=== PATIENT | male | born 1970 | race Caucasian/White ===

== ENCOUNTER 2019-08-25 18:02 | Emergency (ER) | payer OTHER ==
[~2019-08-25] VITALS: Ht 180.3 cm; Wt 113.4 kg
[~2019-08-25 18:02] MED LIST: CARAFATE 1 GM TA1 GM PO; CETIRIZINE HCL5 MG PO; COZAAR 50 MG TA50 M1 PO; OMEPRAZOLE20 M1 PO
[2019-08-25] MEDS ORDERED: CLARITIN10 M3 PO (18:17)
[2019-08-25] MEDS ORDERED: VITAMIN D-40010 MCG PO (18:18)
[2019-08-25] MEDS ORDERED: NEURONTIN 300M300 M2 PO (18:18)
[2019-08-25] MEDS ORDERED: FLOMAX0.4 MG PO (18:18)
[2019-08-25 18:21] LABS: ABSOLUTE BASOPHILS 0.1 thou/uL (0.0-0.2); ABSOLUTE EOSINOPHILS 0.2 thou/uL (0.0-0.7); ABSOLUTE LYMPHOCYTES 2.5 thou/uL (0.8-5.3); ABSOLUTE MONOCYTES 0.8 thou/uL (0.0-1.2); ABSOLUTE NEUTROPHILS 5.5 thou/uL (1.6-8.1); BASOPHILS 0.6 %; EOSINOPHILS 1.9 %; HEMATOCRIT 41.6 % (42.0-52.0); HEMOGLOBIN 14.3 gm/dL (14.0-18.0); LYMPHOCYTES 27.6 %; MCHC 34.3 g/dL (28.0-37.0); MCV 90.3 fL (80.0-100.0); MPV 8.5 fl. (7.2-11.1); NUCLEATED RBCS 0 /100WBC; PLATELET COUNT* 262 thou/uL (150-400); POLYS 60.9 %; RDW-CV 12.9 % (10.5-14.5); URINE BILIRUBIN NEGATIVE (Negative); URINE BLOOD NEGATIVE (Negative); URINE CLARITY CLEAR; URINE COLOR YELLOW; URINE GLUCOSE-RANDOM NEGATIVE (Negative); URINE KETONES NEGATIVE (Negative); URINE LEUKOCYTES-REFLEX NEGATIVE (Negative); URINE NITRITE-REFLEX NEGATIVE (Negative); URINE PROTEIN NEGATIVE (Negative); URINE SPECIFIC GRAVITY <= 1.005 (1.005-1.030); URINE UROBILINOGEN 0.2 E.U./dl (0.2-1.0)
[2019-08-25 18:35] LABS: ALBUMIN 4.1 g/dL (3.4-5.0); TOTAL BILIRUBIN 0.3 mg/dL (<0.1-1.0); TOTAL PROTEIN 7.6 g/dL (6.4-8.2)
[2019-08-25] MEDS ORDERED: ONDANSETRON HCL4 M2 PO (19:57)
[2019-08-25] MEDS ORDERED: IBUPROFEN 800800 M1 PO (19:57)
[2019-08-25] MEDS ORDERED: NORCO 5-325 TA1 EAC2 PO (19:57)
[2019-08-25 20:08] VITALS: BP 127/78
--- NOTE | 2019-08-26 10:49 | EKG ---
[place] [address] ELECTROCARDIOGRAM REPORT Name: SLIME GAMBOA Room: [facility]#: [id number] Admission: 08/25/19 Attend Phys: Discharge: 08/25/19 Date of : 72 Date of Service: 08/25/19 182 Report #: [id number] THIS REPORT FOR: //name// [facility] ED Test Date: 2019-08-25 Test Time: 18:26:15 Pat Name: SLIME GAMBOA Department: Room: Gender: [employer] Specialist: DSL : [id number] Requested By: Lucia Robbins Order Number: [id number] MD: Steffen Stapleton Measurements Intervals [place] Rate: 68 P: 21 MA: 193 QRS: 22 QRSD: 161 T: 3 QT: 401 QTc: 427 Interpretive Statements Sinus rhythm Right bundle branch block Abnormal inferior Q waves Baseline wander in lead(s) V5 Compared to ECG 10/23/2016 02:34:17 no change Electronically Signed On 08-26-2019 10:49:16 CDT by Steffen Stapleton [email or web address] <ELECTRONICALLY SIGNED> By: Steffen Stapleton MD, [facility] 08/26/19 1049 1826 1826 Steffen Stapleton MD, [facility] /EPI
== END 2019-08-25 20:08 | disposition home or self-care (01) ==
LOC: M.ERS 18:02
PROVIDERS: Nurse Practitioner Family
DX: R10.11 Right upper quadrant pain (principal); R11.0 Nausea; N40.0 Benign prostatic hyperplasia without lower urinary tract symptoms; I10 Essential (primary) hypertension; G62.9 Polyneuropathy, unspecified; Z79.899 Other long term (current) drug therapy

== ENCOUNTER 2020-11-10 10:49 | Emergency (ER) | payer OTHER ==
[~2020-11-10] VITALS: Ht 180.3 cm; Wt 109.8 kg
[~2020-11-10 10:49] MED LIST changes: +CLARITIN10 M3 PO; +FLOMAX0.4 MG PO; +IBUPROFEN 800800 M1 PO; +NEURONTIN 300M300 M2 PO; +NORCO 5-325 TA1 EAC2 PO; +ONDANSETRON HCL4 M2 PO; +VITAMIN D-40010 MCG PO
[2020-11-10] MEDS ORDERED: FLONASE 0.05%50 MCG NARES (10:58)
[2020-11-10] MEDS ORDERED: OMEPRAZOLE40 MG PO (10:59)
[2020-11-10] MEDS ORDERED: CHILDREN'S ZYRT10 M1 PO (10:59)
[2020-11-10] MEDS ORDERED: METFORMIN HCL500 M3 PO (11:00)
[2020-11-10] MEDS ORDERED: ALLI60 MG PO (11:02)
[2020-11-10] MEDS ORDERED: ROSUVASTATIN CA20 MG PO (11:03)
[2020-11-10] MEDS ORDERED: TOPROL XL25 MG PO (11:03)
[2020-11-10] MEDS ORDERED: ZINC50 M1 PO (11:03)
[2020-11-10] MEDS ORDERED: VITAMIN D-40010 MCG (11:03)
[2020-11-10] MEDS ORDERED: FISH OIL 1,001000 M2 PO (11:04)
[2020-11-10] MEDS ORDERED: ACTIVE-Q200 MG PO (11:05)
[2020-11-10] MEDS ORDERED: [UNRECOGNIZED DRUG - OTHER] (11:05)
[2020-11-10 11:36] LABS: ABSOLUTE BASOPHILS 0.1 thou/uL (0.0-0.2); ABSOLUTE EOSINOPHILS 0.1 thou/uL (0.0-0.7); ABSOLUTE LYMPHOCYTES 1.6 thou/uL (0.8-5.3); ABSOLUTE MONOCYTES 0.7 thou/uL (0.0-1.2); ABSOLUTE NEUTROPHILS 4.5 thou/uL (1.6-8.1); BASOPHILS 0.8 %; EOSINOPHILS 1.9 %; HEMATOCRIT 40.5 % (42.0-52.0); HEMOGLOBIN 14.2 gm/dL (14.0-18.0); LYMPHOCYTES 22.4 %; MCV 88.6 fL (80.0-100.0); MONOCYTES 9.4 %; MPV 8.4 fl. (7.2-11.1); NUCLEATED RBCS 0 /100WBC; PLATELET COUNT* 225 thou/uL (150-400); POLYS 65.5 %; RBC 4.57 mil/uL (4.50-6.00); RDW-CV 13.4 % (10.5-14.5); WBC 6.9 thou/uL (4.0-11.0)
[2020-11-10 11:48] LABS: CALCIUM 9.1 mg/dL (8.5-10.1); CREATININE 0.9 mg/dL (0.6-1.3); POTASSIUM 4.1 mmol/L (3.5-5.1)
[2020-11-10 11:52] LABS: ALBUMIN 4.2 g/dL (3.4-5.0); TOTAL BILIRUBIN 0.7 mg/dL (<0.1-1.0); TOTAL PROTEIN 8.1 g/dL (6.4-8.2)
[2020-11-10 12:01] LABS: URINE BILIRUBIN NEGATIVE (Negative); URINE BLOOD NEGATIVE (Negative); URINE CLARITY CLEAR; URINE COLOR YELLOW; URINE GLUCOSE-RANDOM NEGATIVE (Negative); URINE KETONES NEGATIVE (Negative); URINE LEUKOCYTES NEGATIVE (Negative); URINE NITRITE NEGATIVE (Negative); URINE PROTEIN NEGATIVE (Negative); URINE SPECIFIC GRAVITY <= 1.005 (1.005-1.030); URINE UROBILINOGEN 0.2 E.U./dl (0.2-1.0)
[2020-11-10] MEDS ORDERED: AUGMENTIN 875-1 EACH PO (13:32)
[2020-11-10] MEDS ORDERED: PROTONIX40 M2 PO (13:32)
[2020-11-10 13:55] VITALS: BP 138/78
== END 2020-11-10 13:57 | disposition home or self-care (01) ==
LOC: M.ERS 10:49
PROVIDERS: Physician Assistant
DX: K52.9 Noninfective gastroenteritis and colitis, unspecified (principal); R11.0 Nausea; I10 Essential (primary) hypertension; F90.9 Attention-deficit hyperactivity disorder, unspecified type; E78.5 Hyperlipidemia, unspecified; Z98.890 Other specified postprocedural states; Z79.899 Other long term (current) drug therapy